=== PATIENT | female | born 1950 | race Caucasian/White ===

== ENCOUNTER 2018-12-08 06:54 | Day surgery (SDC) | payer MEDICARE, OTHER ==
[2018-12-08] MEDS: Polymyxin B/Trimethoprim 10 ML Bottle EYERT SCH ×4 (07:10→08:27)
[2018-12-08] MEDS: Brimonidine 0.2% Ophth Soln 15 ML Bottle EYERT SCH ×4 (07:14→08:27)
[2018-12-08] MEDS: Phenylephrine 2.5% Ophth Soln 2 ML Bot EYERT SCH ×6 (07:19→08:07)
[2018-12-08] MEDS: Tropicamide 1% Ophth Soln 15 ML Bottle EYERT SCH ×4 (07:22→07:55)
--- NOTE | 2018-12-08 07:29 | PCM.PREANE ---
Preanesthetic Assessment - Procedure Proposed Procedure: right eye cataract - Anesthesia/Transfusion/Family Hx Anesthesia History: Prior Anesthesia Without Reaction Family History of Anesthesia Reaction: No Transfusion History: No Prior Transfusion(s) Intubation History: Unknown - Review of Systems General: No Symptoms Pulmonary: No Symptoms Cardiovascular: No Symptoms Gastrointestinal: No Symptoms Neurological: No Symptoms Other: Reports: None - Physical Assessment NPO Status Date: 12/07/18 NPO Status Time: 18:00 Vital Signs: Last Vital Signs Temp 36.8 C 12/08/18 07:00 Pulse 70 12/08/18 07:00 Resp 16 12/08/18 07:00 BP 136/68 12/08/18 07:00 Pulse Ox 97 12/08/18 07:00 Height: 1.6 m Weight: 68.946 kg ASA Class: 2 Mental Status: Alert & Oriented x3 Dentition: Reports: Dentures (lower ), Partial (upper ) Thyro-Mental Finger Breadths: 3 Mouth Opening Finger Breadths: 4 ROM/Head Extension: Full Lungs: Clear to Auscultation, Normal Respiratory Effort Cardiovascular: Regular Rate, Regular Rhythm - Allergies Allergies/Adverse Reactions: Allergies Allergy/AdvReac Type Severity Reaction Status Date / Time No Known Allergies Allergy Verified 12/07/18 11:11 - Blood Blood Available: No - Anesthesia Plan Pre-Op Medication Ordered: None - Acknowledgements Anesthesia Type Planned: MAC Pt an Appropriate Candidate for the Planned Anesthesia: Yes Alternatives and Risks of Anesthesia Discussed w Pt/Guardian: Yes Pt/Guardian Understands and Agrees with Anesthesia Plan: Yes PreAnesthesia Questionnaire HEENT History: Reports: Other (See Below) Other HEENT History: wears glasses, has upper denture Cardiovascular History: Reports: Hypertension Gastrointestinal History: Reports: Gastritis - Infectious Disease History Infectious Disease History: Reports: None - Past Surgical History Female Surgical History: Reports: Tubal Ligation - HOME MEDS Home Medications: Home Meds amLODIPine [Norvasc] 10 mg PO DAILY 10/21/13 [History] Lisinopril 20 mg PO DAILY 07/07/15 [History] Potassium Chloride [Klor-Con M20] 10 meq PO DAILY 11/09/18 [History] - CURRENT (IN HOUSE) MEDS Current Meds: Current Medications Brimonidine Tartrate (Brimonidine Tartrate 0.2% Oph Soln) 0 ml EYERT ASDIRECTED ALLAN Stop: 12/08/18 18:00 Last Admin: 12/08/18 07:14 Dose: 1 drop Cefuroxime Sodium (Zinacef) 0 mg EYERT ASDIRECTED ALLAN Stop: 12/08/18 18:00 Lidocaine HCl (Xylocaine-Mpf 1%) 0 ml INJECT ASDIRECTED ALLAN Stop: 12/08/18 18:00 Phenylephrine HCl (Sunil-Synephrine 2.5% Ophth Soln) 0 ml EYERT ASDIRECTED ALLAN Stop: 12/08/18 18:00 Last Admin: 12/08/18 07:19 Dose: 1 drop Pilocarpine HCl (Pilocar 4% Ophth Soln) 0 ml EYERT ASDIRECTED ALLAN Stop: 12/08/18 18:00 Polymyxin/Trimethoprim Sulfate (Polytrim Ophth Soln) 0 ml EYERT ASDIRECTED ALLAN Stop: 12/08/18 18:00 Last Admin: 12/08/18 07:10 Dose: 1 drop Tetracaine HCl (Tetracaine 0.5% Steri-Unit Radha) 0 ml EYERT ASDIRECTED ALLAN Stop: 12/08/18 18:00 Tropicamide (Mydriacyl 1% Ophth Soln) 0 ml EYERT ASDIRECTED ALLAN Stop: 12/08/18 18:00 Last Admin: 12/08/18 07:22 Dose: 1 drop
[2018-12-08] MEDS: Lidocaine 1% PF 2 ML SDV INJECT SCH ×2 (07:49→08:14)
[2018-12-08] MEDS: Tetracaine HCl/PF 0.5% 4 ML Bottle EYERT SCH ×3 (07:49→08:15)
[2018-12-08] MEDS: Cefuroxime 10 MG/ML SYRINGE EYERT SCH ×2 (07:49→08:25)
[2018-12-08] MEDS: Pilocarpine 4% Ophth Soln 15 ML Bot EYERT SCH ×2 (07:53→08:27)
--- NOTE | 2018-12-08 08:32 | PCM48HPAN ---
Post Anesthesia Note - EVALUATION WITHIN 48HRS OF ANESTHETIC Vital Signs in Normal Range: Yes Patient Participated in Evaluation: Yes Respiratory Function Stable: Yes Airway Patent: Yes Cardiovascular Function Stable: Yes Hydration Status Stable: Yes Pain Control Satisfactory: Yes Nausea and Vomiting Control Satisfactory: Yes Mental Status Recovered: Yes Vital Signs: Last Vital Signs Temp 36.8 C 12/08/18 07:00 Pulse 70 12/08/18 07:00 Resp 16 12/08/18 07:00 BP 136/68 12/08/18 07:00 Pulse Ox 97 12/08/18 07:00
[2018-12-08 08:43] VITALS: BP 138/68; PULSE 72
== END 2018-12-08 08:39 | disposition home or self-care (01) ==
LOC: JD.SDS 06:54
PROVIDERS: ATTEND Ophthalmology
DX: H25.811 Combined forms of age-related cataract, right eye (principal); H52.31 Anisometropia; H16.223 Keratoconjunctivitis sicca, not specified as Sjogren's, bilateral; H16.103 Unspecified superficial keratitis, bilateral; H02.834 Dermatochalasis of left upper eyelid; H02.831 Dermatochalasis of right upper eyelid; I10 Essential (primary) hypertension; Z96.1 Presence of intraocular lens; Z79.899 Other long term (current) drug therapy
CPT/HCPCS: 66984; C1780; J0697; J2001